=== PATIENT | male | born 2000 | race Caucasian/White ===

== ENCOUNTER 2023-10-05 23:24 | Emergency (ER) | payer BC ==
[~2023-10-05] VITALS: Ht 165.1 cm; Wt 49.9 kg
[2023-10-06 01:51] LABS: BASOPHILS % (AUTO) 0.2 % (0.0-2.0); EOSINOPHILS # (AUTO) 0.3 K/uL (0.0-0.7); EOSINOPHILS % (AUTO) 2.9 % (0.0-6.0); HEMATOCRIT 40 % (39-51); HEMOGLOBIN 13.1 g/dL (13.5-17.5); LYMPHOCYTES # (AUTO) 1.1 K/uL (0.8-4.8); LYMPHOCYTES % (AUTO) 9.7 % (20.0-44.0); MEAN CORPUSCULAR HEMOGLOBIN 30 PG (26.0-33.0); MEAN CORPUSCULAR HGB CONC 33 g/dl (31.0-36.0); MEAN CORPUSCULAR VOLUME 89 fL (80-96); MONOCYTES # (AUTO) 0.9 K/uL (0.1-1.30); MONOCYTES % (AUTO) 7.9 % (2.0-12.0); NEUTROPHILS # (AUTO) 8.9 K/uL (1.8-8.9); NEUTROPHILS % (AUTO) 79.3 % (43.0-81.0); PLATELET COUNT (AUTO) 259 K/uL (150-450); RED BLOOD CELL COUNT(AUTO) 4.44 MIL/uL (4.5-6.0); RED CELL DISTRIBUTION WIDTH 14.4 % (11.5-15.0); WHITE BLOOD COUNT (AUTO) 11.2 K/uL (4.3-11.0)
[2023-10-06 02:04] LABS: INR 1.09 (0.91-1.10); PARTIAL THROMBOPLASTIN TIME 29.8 SEC (24.3-34.3); PROTHROMBIN TIME 11.5 SECS (9.2-11.1)
[2023-10-06 02:08] LABS: CALCIUM, SERUM 8.3 mg/dL (8.5-10.1); CREATININE 0.7 mg/dL (0.6-1.3); POTASSIUM 3.7 mmol/L (3.5-5.1)
[2023-10-06 04:26] LABS: HEMOGLOBIN 13.4 g/dL (13.5-17.5)
[2023-10-06] MEDS ORDERED: ONDANSETRON HCL/PF 4 MG/2 ML VIAL ONE (05:19)
[2023-10-06] MEDS: ONDANSETRON HCL/PF 4 MG/2 ML VIAL IV ONE (05:28)
[2023-10-06 07:07] VITALS: BP 102/76; TEMP 98.5; O2SAT 97
== END 2023-10-06 07:08 ==
LOC: ER 23:27
DX: R58 Hemorrhage, not elsewhere classified (principal); R10.2 Pelvic and perineal pain; Z60.2 Problems related to living alone
CPT/HCPCS: 99285; 96374; 76856; 85025; 80048; 85730; 86850; 84702; 85027; J2405; A6403 ×2